=== PATIENT | male | born 1980 | race Hispanic/Latino ===

== ENCOUNTER → 2024-01-05 | Emergency (ER) | payer SELFPAY ==
[~2024-01-05] MED LIST: ALBUTEROL 2.5 MG/3 ML NEB SOL ONE; IPRATROPIUM BROM 0.5MG/2.5ML ONE
--- OUTSIDE RECORDS SUMMARY | 2024-01-05 06:42 | XMS REPORT | Continuity of Care Document ---
Author Name Unknown Address [address] [place] [address] [employer] Address [address] [place] [address] Care Team Providers Care Claim Inspector Name Role Phone DORINA Attending Clinician Unavailable DORINA Admitting Clinician Unavailable Encounters Start Date/Time End Date/Time Encounter Type Admission Type Attending Clinicians Care Facility Care Department Encounter ID Source 2022-06-27 00:00:00 2022-06-27 00:00:00 Outpatient [facility] [id number] Lily damian [facility] Program
--- NOTE | 2024-01-05 07:48 | EDPHYS ---
Physician Documentation [facility] Name: Sarbjit Thomas Age: 43 yrs Sex: Male : 1980 Arrival Date: 01/05/2024 Time: 06:39 Bed 7 Private MD: ED Physician Bernardo Venegas HPI: 01/05 07:31 This 43 yrs old Male presents to ER via Ambulatory with complaints of Cough, sp3 Chest Congestion. 07:31 43-year-old male with no known past medical history presents with chief complaint cough sp3 and congestion. Patient went to a different clinic yesterday and received a flu and COVID test which were negative and was placed on a cough syrup. No radiographic imaging was done. Today he presents with worsening cough and phlegm production. He is concerned about these items but denies any other new symptoms including fever, chest pain, shortness of breath, abdominal pain, vomiting or diarrhea, syncope, rash, or any other concerning findings. Remainder of ROS negative.. Historical: - Allergies: 07:11 No Known Allergies; jb4 - PMHx: 07:11 None; jb4 - PSHx: 07:11 None; jb4 - Immunization history:: Adult Immunizations up to date. - Social history:: Smoking status: Patient reports the use of cigarette tobacco products, smokes one pack cigarettes per day. Patient uses alcohol, occasionally. ROS: 07:32 Constitutional: Negative for fever, chills, and weight loss, Eyes: Negative for injury, sp3 pain, redness, and discharge, Neck: Negative for injury, pain, and swelling, Cardiovascular: Negative for chest pain, palpitations, and edema, Abdomen/GI: Negative for abdominal pain, nausea, vomiting, diarrhea, and constipation, Back: Negative for injury and pain, : Negative for injury, bleeding, discharge, and swelling, MS/Extremity: Negative for injury and deformity, Skin: Negative for injury, rash, and discoloration, Neuro: Negative for headache, weakness, numbness, tingling, and seizure, Psych: Negative for depression, anxiety, suicide ideation, homicidal ideation, and hallucinations, Allergy/Immunology: Negative for hives, rash, and allergies, Endocrine: Negative for neck swelling, polydipsia, polyuria, polyphagia, and marked weight changes, Hematologic/Lymphatic: Negative for swollen nodes, abnormal bleeding, and unusual bruising, 07:32 All other systems are negative, Exam: 07:32 Constitutional: This is a well developed, well nourished patient who is awake, alert, sp3 and in no acute distress. Head/Face: Normocephalic, atraumatic. Eyes: Pupils equal round and reactive to light, extra-ocular motions intact. Lids and lashes normal. Conjunctiva and sclera are non-icteric and not injected. Cornea within normal limits. Periorbital areas with no swelling, redness, or edema. Neck: Trachea midline, no thyromegaly or masses palpated, and no cervical lymphadenopathy. Supple, full range of motion without nuchal rigidity, or vertebral point tenderness. No Meningismus. Chest/axilla: Normal chest wall appearance and motion. Nontender with no deformity. No lesions are appreciated. Cardiovascular: Regular rate and rhythm with a normal S1 and S2. No gallops, murmurs, or rubs. Normal PMI, no JVD. No pulse deficits. Abdomen/GI: Soft, non-tender, with normal bowel sounds. No distension or tympany. No guarding or rebound. No evidence of tenderness throughout. Back: No spinal tenderness. No costovertebral tenderness. Full range of motion. Skin: Warm, dry with normal turgor. Normal color with no rashes, no lesions, and no evidence of cellulitis. MS/ Extremity: Pulses equal, no cyanosis. Neurovascular intact. Full, normal range of motion. Neuro: Awake and alert, GCS 15, oriented to person, place, time, and situation. Cranial nerves II-XII grossly intact. Motor strength 5/5 in all extremities. Sensory grossly intact. Cerebellar exam normal. Normal gait. Psych: Awake, alert, with orientation to person, place and time. Behavior, mood, and affect are within normal limits. 07:32 Respiratory: Patient with upper airway congestion and mild rhonchi diffusely. Active cough noted., Vital Signs: 07:09 BP 137 / 98; Pulse 98; Resp 18; Temp 98.2(TE); Pulse Ox 96% on R/A; Weight 145.15 kg jb4 (R); Height 5 ft. 6 in. ; 07:09 Body Mass Index 51.65 (145.15 kg, 167.64 cm) jb4 MDM: 07:07 Patient medically screened. sp3 07:32 Data reviewed: vital signs, nurses notes, radiologic studies. ED course: 43-year-old sp3 male with cough and congestion. Differential diagnosis includes pneumonia, bronchitis, viral syndrome, influenza, COVID-19, allergies, among others. I am not highly suspicious for acute coronary syndrome, sepsis, shock, aortic pathology including dissection and/or aneurysm, or any other critical pathway. Flu and COVID were negative yesterday. Today will obtain chest x-ray and administer DuoNeb for symptomatic control. Patient is already on cough syrup and we will lay her on antibiotics as indicated. Disposition will be discharged home with follow-up to PCP.. 07:46 ED course: Chest x-ray is negative patient is improved. Vital signs are normal pulse sp3 oxygenation remains normal. Will discharge home on Z-Armando with follow-up with PCP and continue taking already prescribed cough syrup.. 01/05 07:15 Order name: CXR XRAY; Complete Time: 08:33 sp3 Administered Medications: 07:34 Drug: DuoNeb Nebulize (3:1) (2.5 mg - 0.5 mg) 3 ml Nebulizer once Route: Nebulizer; ld1 Disposition Summary: 01/05/24 07:47 Discharge Ordered Notes: Location: Home sp3 Condition: Stable sp3 Diagnosis - Upper respiratory infection, bronchitis sp3 Followup: sp3 - With: Private Physician - When: Upon discharge from the Emergency Department - Reason: Continuance of care Discharge Instructions: - Discharge Summary Sheet sp3 Forms: - Work release form ss - Family Work Release ss - Medication Reconciliation Form sp3 - Thank You Letter sp3 - Antibiotic Education sp3 - Prescription Opioid Use sp3 - Patient Portal Instructions sp3 - Leadership Thank You Letter sp3 Prescriptions: - albuterol sulfate 90 mcg/actuation Inhalation HFA Aerosol Inhaler - inhale 2 inhalation INHALATION route every 4 to 6 hours as needed for sp3 bronchospasm; administer via ventilator; 1 Each; Refills: 0, Product Selection Permitted - Zithromax Z-Armando 250 mg Oral Tablet - take 1 tablet ORAL route as directed for 5 days Day 1 - take two (2) tablets sp3 one time. Day 2, 3, 4 , 5 take one (1) tablet once daily.; 6 tablet; Refills: 0, Product Selection Permitted Signatures: Dispatcher [employer] Mao Morton, RN RN jb4 Rosanna Hernandez RN RN ld1 Bernardo Venegas MD MD sp3
--- NOTE | 2024-01-05 07:48 | ER ---
Nurse's Notes [facility] Name: Sarbjit Thomas Age: 43 yrs Sex: Male : 1980 Arrival Date: 01/05/2024 Time: 06:39 Bed 7 Private MD: Diagnosis: Upper respiratory infection, bronchitis Presentation: 01/05 07:09 Chief complaint: Patient states: I have had a cough for the past 5 days. I had a fever jb4 3 days ago. I am coughing up yellow phlegm. I have a headache, and chest pain and rib pain with the cough. Coronavirus screen: At this time, the client does not indicate any symptoms associated with coronavirus-19. Ebola Screen: No symptoms or risks identified at this time. Initial Sepsis Screen: Does the patient meet any 2 criteria? HR > 90 bpm. Yes Does the patient have a suspected source of infection? No. Patient's initial sepsis screen is negative. Risk Assessment: Do you want to hurt yourself or someone else? Patient reports no desire to harm self or others. Onset of symptoms was January 05, 2024. Transition of care: patient was not received from another setting of care. 07:09 Method Of Arrival: Ambulatory jb4 07:09 Acuity: AMADA 3 jb4 Historical: - Allergies: 07:11 No Known Allergies; jb4 - PMHx: 07:11 None; jb4 - PSHx: 07:11 None; jb4 - Immunization history:: Adult Immunizations up to date. - Social history:: Smoking status: Patient reports the use of cigarette tobacco products, smokes one pack cigarettes per day. Patient uses alcohol, occasionally. Vital Signs: 07:09 BP 137 / 98; Pulse 98; Resp 18; Temp 98.2(TE); Pulse Ox 96% on R/A; Weight 145.15 kg jb4 (R); Height 5 ft. 6 in. ; 07:09 Body Mass Index 51.65 (145.15 kg, 167.64 cm) jb4 ED Course: 06:42 Patient arrived in ED. gm2 07:07 Bernardo Venegas MD is Attending Physician. sp3 07:11 Triage completed. jb4 07:11 Arm band placed on right wrist. jb4 07:29 Rosanna Hernandez RN is Primary Nurse. ld1 08:00 CXR XRAY In Process Unspecified. EDMS Administered Medications: 07:34 Drug: DuoNeb Nebulize (3:1) (2.5 mg - 0.5 mg) 3 ml Nebulizer once Route: Nebulizer; ld1 Outcome: 07:47 Discharge ordered by . sp3 08:36 Patient left the ED. Signatures: Dispatcher [employer] EDMS Natalia Silva RN RN Mao Mello RN RN jb4 Rosanna Hernandez RN RN ld1 Bernardo Venegas MD MD sp3 Oanh Figueroa 2
--- NOTE | 2024-01-05 08:31 | RAD REPORT ---
EXAM DESCRIPTION: Ron Single View01/05/2024 7:58 am CLINICAL HISTORY: Congestion COMPARISON: none FINDINGS: The lungs appear clear of acute infiltrate. The heart is normal size IMPRESSION: No acute abnormalities displayed
[2024-01-05 08:46] VITALS: BP 137/98; TEMP 98.2; O2SAT 96
== END ==
LOC: ER 06:39
DX: J40 Bronchitis, not specified as acute or chronic (principal)
CPT/HCPCS: 71045; 94640; J7613; J7644